=== PATIENT | male | born 1985 | race Caucasian/White ===

== ENCOUNTER 2024-06-01 14:16 | Emergency (ER) | payer OTHER, SELFPAY ==
[2024-06-01 14:32] VITALS: BP 146/81; PULSE 66; RESP 17; TEMP 36.6; O2SAT 99; BMI 22.8
--- NOTE | 2024-06-01 14:40 | W.ED.MALEGU ---
HPI - Male Genitourinary General: Chief complaint: Urogenital-Male Stated complaint: hemorroids Time Seen by Provider: 06/01/24 14:38 History of Present Illness: 39-year-old male patient comes in today for complaints of hemorrhoids. Patient reports increasing swelling and tenderness to the anal area. Patient also reports on Monday he had 1 that started to bleed. Patient appears nontoxic. Patient appears in no acute distress. Related Data Previous Rx's Medication Instructions Recorded hydrocortisone 25 mg-pramoxine 18 1 supp RI BID 12 days #24 ea 06/01/24 mg rectal suppository polyethylene glycol 3350 17 17 g PO BID #510 grams 06/01/24 gram/dose oral powder (Miralax) pramoxine 1 %-zinc oxide 12.5 % 1 applic topical 5XD PRN 06/01/24 topical ointment hemorrhoids #56 grams Allergies Allergy/AdvReac Type Severity Reaction Status Date / Time No Known Allergies Allergy Verified 06/01/24 14:37 Review of Systems General: Reports: 10 or more systems reviewed and unremarkable except in HPI and below Physical Exam HENMT: COMMON NORMALS: atraumatic HEAD & SCALP: atraumatic Neck/C-Spine: COMMON NORMALS: full ROM Resp: COMMON NORMALS: normal respiratory effort Cardio: COMMON NORMALS: regular rate RATE: regular rate GI: RECTAL EXAM: Yes hemorrhoids Back/Pelvis: COMMON NORMALS: thoracic and lumbar spine normal to inspection Extremity: COMMON NORMALS: full ROM Skin: COMMON NORMALS: turgor normal GENERAL SKIN EXAM: turgor normal Course Vital Signs: Vital signs: Vital Signs Temperature 98 F 06/01/24 14:32 Pulse Rate 66 06/01/24 14:32 Respiratory Rate 17 06/01/24 14:32 Blood Pressure 146/81 06/01/24 14:32 Pulse Oximetry 99 06/01/24 14:32 Oxygen Delivery Me thod Room Air 06/01/24 14:32 MDM - Male Medical Decision Making 39-year-old male patient here today with complaints of bleeding hemorrhoid. On exam patient has hemorrhoids noted to the left no openings. Patient does have 1 ruptured hemorrhoid with some light oozing of blood. Patient appears nontoxic. Patient appears no acute distress. No surrounding tissue induration or redness. Differential diagnosis rectal prolapse, hemorrhoids, anal fissure. Reviewed exam with patient and recommended treatment with suppositories and cream. Recommend follow-up with dental surgery for further evaluation and treatment as needed. No radiology studies performed this visit Discharge Plan Discharge Patient Disposition: Home Clinical Impression: Bleeding hemorrhoid Condition: Stable Prescriptions: New hydrocortisone-pramoxine 25-18 mg suppository 1 supp RI BID 12 Days Qty: 24 0RF pramoxine-zinc oxide 1-12.5 % ointment 1 applic topical 5XD PRN (Reason: hemorrhoids) Qty: 56 0RF Miralax 17 gram/dose powder 17 g PO BID Qty: 510 0RF Rx Instructions: mix in 8 ounces of non-carbonated liquid Discharge Orders: Discharge ED (Routine); Ordered 06/01/24 Ordered By: Myron Morgan Discharge Diet: Usual diet Patient Instructions: Hemorrhoids (ED) Activity Restrictions/Additional Instructions: Drink plenty of water and fluids. Use suppositories twice a day to help with reduction of swelling of the hemorrhoids. Apply cream/ointment up to 5 times a day for discomfort. Use MiraLAX twice a day to keep stools soft. Make sure to drink lots of water and liquids. Case management will contact you about follow-up with surgeon for further evaluation and treatment. 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
--- NOTE | 2024-06-03 09:12 | DCPLANNER ---
messaged gen surg for er f/u
== END 2024-06-01 15:14 | disposition home or self-care (01) ==
PROVIDERS: Emergency Provider Nurse Practitioner Family
DX: K64.9 Unspecified hemorrhoids (principal)
CPT/HCPCS: 99283